=== PATIENT | female | born 1945 | race Caucasian/White ===

== ENCOUNTER 2021-01-22 07:14 | Emergency (ER) | payer MEDICARE, OTHER, SELFPAY ==
[2021-01-22 07:15] VITALS: BP 163/77; PULSE 73; RESP 18; TEMP 36.3; O2SAT 99; BMI 30.5
--- NOTE | 2021-01-22 07:51 | EDS_ITS ---
HPI History of Present Illness Chief Complaint: Complaint Informant: patient Narrative Narrative: She also had some left-sided backslash abdominal pain yesterday but this also resolved without any treatment. She denies any associated fever/chills. Yesterday she did have some nausea but this since resolved. She states it has been many years since she had a UTI before. She feels like this is going on now.Patient is a 76-year-old female who presents to the emergency department for burning with urination, urinary frequency. Her symptoms started last night. No change in bowel movements. She denies any chest pain. She has had some chronic shortness of breath that is no worse than normal. She has had some left shoulder pain but states she has been driving a long distance and feels like that is aggravating it. Her shoulder pain is exacerbated by moving her left arm. She states that she has had multiple torn rotator cuffs on that side. [facility] Medical History (Updated 01/22/21 @ 11:[address] Ismael Archer, ) Hypertension Allergy/AdvReac Type Severity Reaction Status Date / Time adhesive Allergy Rash Verified 01/22/21 07:22 amlodipine Allergy Rash Verified 01/22/21 07:22 cefuroxime [From Ceftin] Allergy Rash Verified 01/22/21 07:22 cephalexin Allergy Rash Verified 01/22/21 07:22 cholestyramine Allergy Rash Verified 01/22/21 07:22 [From Questran] furosemide [From Lasix] Allergy Other Verified 01/22/21 07:22 hyoscyamine [From Levsinex] Allergy Rash Verified 01/22/21 07:22 ibuprofen [From Advil] Allergy Anaphylaxis Verified 01/22/21 07:22 Iodinated Contrast Media Allergy Hives Verified 01/22/21 07:22 [CONTRASTS] meperidine [From Demerol] Allergy Anaphylaxis Verified 01/22/21 07:22 metformin Allergy Rash Verified 01/22/21 07:22 nitrofurantoin Allergy Rash Verified 01/22/21 07:22 [From Macrodantin] norfloxacin [From Noroxin] Allergy Rash Verified 01/22/21 07:22 Penicillins Allergy Rash Verified 01/22/21 07:22 prednisone Allergy Rash Verified 01/22/21 07:22 rofecoxib [From Vioxx] Allergy Rash Verified 01/22/21 07:22 sucrose [From Questran] Allergy Rash Verified 01/22/21 07:22 Sulfa (Sulfonamide Allergy Rash Verified 01/22/21 07:22 Antibiotics) vancomycin Allergy Rash Verified 01/22/21 07:22 Social History Smoking Status: Never smoker ROS ROS ED Constitutional Constitutional ED: Denies chills or fever(s) Eyes Eyes: Denies change in vision ENT ENT ED: Denies epistaxis or rhinorrhea Cardiovascular Cardiovascular: Denies chest pain or palpitations Respiratory/Chest Respiratory/Chest: Reports dyspnea; Denies cough or dyspnea on exertion Gastrointestinal Gastrointestinal: Denies abdominal pain, diarrhea, nausea or vomiting Genitourinary Genitourinary ED: Reports dysuria and urinary frequency; Denies hematuria Musculoskeletal Musculoskeletal: Reports other Details: Left shoulder pain ; Denies back pain or neck pain Integumentary Denies rash Neurologic Neurologic: Denies dizziness, headache(s) or weakness EXAM Physical Exam Const Vital Signs: 01/22/21 07:15 01/22/21 10:41 Temperature 97.4 F L Temperature Source Temporal Pulse Rate 73 61 Respiratory Rate 18 Blood Pressure 163/77 H 140/58 H Blood Pressure Mean 105 85 Pulse Ox 99 100 Oxygen Delivery Method Room Air Room Air Positive well nourished and well developed General Appearance ED: well developed and NAD HEENT Reports normocephalic, head/scalp atraumatic and moist mucous membranes Eyes PERRL and EOMs intact bilaterally Neck no lymphadenopathy and supple Resp normal respiratory effort and clear to auscultation bilaterally Auscultation: Negative for rales, rhonchi or wheezes Cardio regular rate, regular rhythm and no murmurs Cardio Narrative: Systolic murmur present GI normal to inspection, nondistended, normoactive bowel sounds and non-tender GI Narrative: Left side abdominal wall hernia present, soft, easily compressible.. Palpation: soft; Negative for guarding or rebound tenderness present Back/Spine no CVA tenderness General Back: Negative for CVA tenderness Extremity normal to inspection General Extremety ED: Negative for edema or tenderness General Extremity: Negative for edema Neuro oriented x3, CN's II-XII intact bilaterally and no sensory deficits noted Sensorium / Orientation: alert Motor Exam: strength 5/5 throughout Psych mental status grossly normal Skin no rashes or lesions noted MDM MDM MDM Narrative Medical decision making narrative: Patient presents to the ED for urinary symptoms. Upon arrival to the emerge department she is mildly hypertensive but otherwise normal vital signs. She is afebrile. She is in no acute distress. Patient actually brought in her own urine sample. She is refusing to give a urine sample here in the emergency department. Patient's urine does not show any signs of infection. On her lab work her creatinine is mildly elevated but her white blood cell count is within normal limits. She does have a history of kidney stones a CT scan of the abdomen/pelvis was obtained. This did not show any obstructing stone. There were stones in the kidneys bilaterally. Her bladder does seem very distended with a bladder diverticuli. I did recommend placing a Gallagher catheter as this is most likely the cause of her symptoms. Patient is refusing states that she is traveling around this area and just cannot do it. I do recommend that she follow-up with urology. She states that she is going to return home in 2 weeks but will try to follow-up as soon as possible. I did give her a urologist here in town if she is able to follow-up soon as possible. Return precautions are reviewed with her. She understands and is agreeable to plan. Discharged home in stable condition. All questions answered. Lab Data Labs: Laboratory Results - last 24 hr 01/22/21 01/22/21 01/22/21 07:40 08:40 08:40 WBC 6.0 RBC 3.93 L Hgb 12.5 Hct 37.4 MCV 95.2 MCH 31.8 MCHC 33.4 RDW Std Deviation 47.1 H RDW Coeff of Rich 13.3 Plt Count 217 MPV 9.2 Immature Gran % (Auto) 0.500 Neut % (Auto) 53.4 Lymph % (Auto) 31.0 Emmons % (Auto) 11.4 H Eos % (Auto) 3.0 Baso % (Auto) 0.7 Absolute Neuts (auto) 3.2 Absolute Lymphs (auto) 1.85 Nucleated RBC % 0 Sodium Potassium Chloride Carbon Dioxide Anion Gap BUN Creatinine Estim Creat Clear Calc Est GFR (MDRD) Af Amer Est GFR (MDRD) Non-Af BUN/Creatinine Ratio Glucose Calcium Total Bilirubin 0.40 Direct Bilirubin 0.11 AST 36 ALT 33 Alkaline Phosphatase 119 H Troponin I Total Protein 8.2 Albumin 3.6 Globulin 4.6 H Urine Color Yellow Urine Clarity Sl. Cloudy Urine pH 6.0 Ur Specific [place] 1.015 Urine Protein Negative Urine Glucose (UA) Normal Urine Ketones Negative Urine Occult Blood Negative Urine Nitrite Negative Urine Bilirubin Negative Urine Urobilinogen Normal Ur Leukocyte Esterase Negative Urine RBC 0 SEEN Urine WBC 0 SEEN Ur Squamous Epith Cells 0-5 SEEN Urine Bacteria 0 SEEN Urine Mucus 0 SEEN 01/22/21 08:40 WBC RBC Hgb Hct MCV MCH MCHC RDW Std Deviation RDW Coeff of Rich Plt Count MPV Immature Gran % (Auto) Neut % (Auto) Lymph % (Auto) Emmons % (Auto) Eos % (Auto) Baso % (Auto) Absolute Neuts (auto) Absolute Lymphs (auto) Nucleated RBC % Sodium 132 L Potassium 4.3 Chloride 97 L Carbon Dioxide 27.0 Anion Gap 8 BUN 22 H Creatinine 1.51 H Estim Creat Clear Calc 25.40 Est GFR (MDRD) Af Amer 43 L Est GFR (MDRD) Non-Af 35 L BUN/Creatinine Ratio 14.6 Glucose 128 H Calcium 9.0 Total Bilirubin Direct Bilirubin AST ALT Alkaline Phosphatase Troponin I < 0.015 Total Protein Albumin Globulin Urine Color Urine Clarity Urine pH Ur Specific [place] Urine Protein Urine Glucose (UA) Urine Ketones Urine Occult Blood Urine Nitrite Urine Bilirubin Urine Urobilinogen Ur Leukocyte Esterase Urine RBC Urine WBC Ur Squamous Epith Cells Urine Bacteria Urine Mucus Radiography Diagnostic Testing: Radiology Impression Abdomen/Pelvis CT 01/22/21 10:05 IMPRESSION: Bilateral nonobstructive intrarenal calculi. Distended urinary bladder with possible bladder diverticula anteriorly. Moderate sized umbilical hernia containing fat. Electronically Signed: Emerson Torrez MD at 11:04 EDT , Service support , EKG Initial EKG: Attestation: I personally reviewed and interpreted this EKG as follows: (Rate of 67 bpm and normal sinus rhythm. PVC present. Otherwise normal intervals. Normal axis. No significant ST elevations or depressions. No T wave abnormalities.) Discharge Plan Triage Chief Complaint: Complaint ED Provider: Ismael Archer Dx/Rx/DC Orders Clinical Impression: Urinary retention Instructions: ED Urinary Retention, Female Referrals: JAVIER GUTIÉRREZ [Other] Faina Street MD [STAFF PHYSICIAN] - As soon as possible Disposition Disposition: Home, self care Discharge Date/Time: 01/22/21 11:26
[2021-01-22 07:54] LABS: Bacteria 0 SEEN /hpf (None Seen); Mucous, Urine 0 SEEN /hpf (<or=2+); Red Blood Cells-Urine 0 SEEN /hpf (0-5); White Blood Cells 0 SEEN /hpf (0-5)
--- NOTE | 2021-01-22 07:56 | ED.RN ---
pt brought urine sample from home, states can not give a sample here and is refusing to be cath. provider ok with urine sample from home being sent to lab.
[2021-01-22 08:00] LABS: Color, Urine Yellow (Yellow); Glucose, Dipstick Normal (Normal); Ketone-Dipstick Negative (Negative); Leukocyte Esterase-Dipstick Negative /ul (Negative); Nitrite-Dipstick Negative (Negative); Occult Blood-Urine Negative /ul (Negative); Protein-Dipstick Negative (Negative); Specific Gravity, Urine 1.015 (1.002-1.030); Urine Bilirubin Dipstick Negative (Negative); Urine Clarity Sl. Cloudy (Clear); Urine Urobilinogen Normal (Normal)
[2021-01-22 08:06] LABS: Squamous Epithelial Cells - UA 0-5 SEEN /hpf (5-10)
--- NOTE | 2021-01-22 08:32 | EKG12_ITS ---
Test Reason : WORK UP Blood Pressure : / mmHG Vent. Rate : 067 BPM Atrial Rate : 067 BPM P-R Int : 158 ms QRS Dur : 082 ms QT Int : 406 ms P-R-T Axes : 032 -08 034 degrees QTc Int : 429 ms Sinus rhythm with occasional Premature ventricular complexes Possible Left atrial enlargement Borderline ECG Confirmed by FABIÁN JUAN, LAYTON ([id number]), staff editor LUDWIN FOX ([id number]) on 01/26/2021 8:11:35 AM Referred By: DANIELA Confirmed By:LAYTON LOCKWOOD MD
--- NOTE | 2021-01-22 08:48 | NURSING ---
NO OLD EKGS
[2021-01-22 08:53] LABS: Absolute Lymphocyte Count 1.85 X10^3/uL (0.83-4.51); Absolute Neutrophil Count 3.2 X10^3/uL (2.0-7.7); Basophil# 0.04 X10^3/uL; Basophil% 0.7 % (0-1); Eosinophil# 0.18 X10^3/uL; Hematocrit 37.4 % (37-47); Hemoglobin 12.5 g/dL (12.0-15.0); Lymphocyte # 1.85 X10^3/ul (0.83-4.51); Mean Corp Hgb Conc 33.4 g/dL (32-36); Mean Corpuscular Hgb 31.8 pg (27.0-32.0); Mean Corpuscular Volume 95.2 fL (81-99); Mean Platelet Vol. 9.2 fl (6.2-12.0); Monocyte# 0.68 X10^3/uL; Monocyte% 11.4 % (0-10); NRBC Flagged by Analyzer 0 % (0-5); Neutrophil # 3.19 X10^3/uL (2.7-7.7); Neutrophil % 53.4 % (47-70); Platelet Count 217 K/mm3 (150-450); RBC Distribution Width CV 13.3 % (11.6-14.6); RBC Distribution Width SD 47.1 fl (35.1-43.9); Red Blood Count 3.93 M/mm3 (4.2-5.4)
[2021-01-22 09:09] LABS: AST(SGOT) 36 U/L (15-37); Alanine Aminotransfer ALT/SGPT 33 U/L (13-56); Albumin, Serum 3.6 g/dL (3.2-5.0); Alkaline Phosphatase 119 U/L (45-117); Bilirubin, Direct 0.11 mg/dL (0.00-0.30); Globulin 4.6 g/dL (2.2-4.2); Protein, Total 8.2 g/dL (6.4-8.2)
[2021-01-22 09:15] LABS: Anion Gap 8 (5-15); BUN 22 mg/dL (7-18); BUN/Creat Ratio 14.6 RATIO (10-20); Chloride 97 mmol/L (98-107); Creatinine, Serum 1.51 mg/dL (0.55-1.02); EST Glomerular Filtration Rate 35 mL/min (>60); Est Glom Filt Rate - Afr Amer 43 mL/min (>60); Glucose 128 mg/dL (74-106); Potassium 4.3 mmol/L (3.5-5.1); Sodium Level 132 mmol/L (136-145)
--- NOTE | 2021-01-22 10:05 | CT_ITS ---
STUDY: CT ABDOMEN AND PELVIS WITHOUT CONTRAST REASON FOR EXAM: Female, 76 years old. Eval for kidney stone, urine sx, intermittent pain. Left flank pain. RADIATION DOSAGE (If Supplied By Facility): CTDIvol = ( 15.88 ) mGy, DLP = ( 658.69 ) mGycm TECHNIQUE: Transaxial images were obtained from the dome of the diaphragm to the symphysis pubis without oral contrast, and without intravenous contrast. Sagittal and coronal images were reconstructed. Individualized dose optimization techniques were used for this CT. COMPARISON: None. FINDINGS: The visualized lung bases are unremarkable. The visualized portions of the heart are within normal limits. Normal liver. There are surgical clips in the gallbladder fossa consistent with a prior cholecystectomy. Normal spleen. Normal pancreas. Normal bilateral adrenal glands. Multiple small right intrarenal calculi. The largest measures 3.6 mm. Nonobstructive left renal calculi. The largest measures 4 mm. 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 There is a small hiatal hernia. Normal small intestine. Normal colon. The appendix is visualized and appears normal. There is diffuse atherosclerotic calcification of the abdominal aorta and its major visceral branches, without a demonstrated aneurysm. Normal inferior vena cava. Normal retroperitoneum. Distended urinary bladder. The anterior wall of the urinary bladder is lobulated. This may represent a bladder diverticulum. There is evidence of a moderate size umbilical hernia containing fat. The neck of the hernia measures 4.4 cm. There are diffuse degenerative changes of the visualized lumbar spine. Status post right total hip replacement. CT/Abdomen/Pelvis without Cont IMPRESSION: Bilateral nonobstructive intrarenal calculi. Distended urinary bladder with possible bladder diverticula anteriorly. Moderate sized umbilical hernia containing fat. Electronically Signed: Emerson Torrez MD at 11:04 EDT , Service support ,
[2021-01-22 10:41] VITALS: BP 140/58; PULSE 61; O2SAT 100
--- NOTE | 2021-01-22 11:23 | ED.RN ---
PT LEFT PRIOR TO D/C PAPERWORK. PT ALSO HAS AN IV AND I AM UNABLE TO TELL IF SHE TOOK IV OUT OR NOT.
--- NOTE | 2021-01-22 11:32 | ED.RN ---
PT CAME BACK TO ROOM STATED SHE HAD BEEN IN THE RESTROOM. IV REMOVED.
== END 2021-01-22 11:26 | disposition home or self-care (01) ==
PROVIDERS: Emergency Provider Emergency Medicine
DX: R33.9 Retention of urine, unspecified (principal); K42.9 Umbilical hernia without obstruction or gangrene; N20.0 Calculus of kidney; Z87.442 Personal history of urinary calculi; I10 Essential (primary) hypertension; Z88.0 Allergy status to penicillin
CPT/HCPCS: 74176; 80048; 80076; 81001; 84484; 85025; 87086; 87088; 93005; 99281; A4216